=== PATIENT | female | born 1930 | race Caucasian/White ===

== ENCOUNTER 2016-09-16 14:09 | Emergency (ER) | payer MEDICAID, MEDICARE ==
[~2016-09-16] VITALS: Ht 157.5 cm; Wt 44.0 kg
[2016-09-16 14:17] VITALS: BP 194/75; PULSE 66; RESP 15; TEMP 97.9; O2SAT 98
[2016-09-16] MEDS ORDERED: SODIUM CHLORIDE 0.9% FLUSH 10 ML FLUSH IVF PRN (14:45)
[2016-09-16 14:55] VITALS: BP 218/76
[2016-09-16 15:01] VITALS: BP 206/82; PULSE 53; O2SAT 97
--- NOTE | 2016-09-16 15:14 | PD ---
HPI Chief Complaint: General Weakness Time Seen by Provider: 14:27 Travel History International Travel<30 days: No Contact w/Intl Traveler<30days: No Traveled to known affect area: No History of Present Illness HPI The patient is 86 years old. She reports a generalized sensation of weakness. The daughter provides the family history notes that one week ago the patient was found by her son. At that time she was very thin having lost at least 20 pounds or so. She was eating cereal only for several weeks. Since then her appetite is greatly improved and she is actually gained almost 10 pounds in a week. A visiting home health aide suggested in the ER evaluation for urinary tract infection or other abnormality. The patient has had no falls or fever. She has not had nausea or vomiting. No chest pain or shortness of breath. The patient denies any past medical history. PFSH Past Medical History Medical History: Denies Significant Hx Heart Rhythm Problems: No Cardiac Catheterization: No Cardiovascular Problems: No High Cholesterol: No Congestive Heart Failure: No Diabetes: No Diminished Hearing: Yes Immunizations Current: No Tetanus Vaccination: Unknown ?: Not Past Surgical History Surgical History: No Previous Surgery Coronary Artery Bypass Graft: No Family History Family Myocardial Infarction: Yes (father) Social History Alcohol Use: No (hx of) Tobacco Use: No (multiple year history but quit over 20 years ago when she picked up drinkin) Substance Use: No Allergies-Medications (Allergen,Severity, Reaction): Coded Allergies: No Known Allergies (Unverified , 03/19/16) Reported Meds & Prescriptions Reported Meds & Active Scripts Active No Active Prescriptions or Reported Medications Review of Systems Except as stated in HPI: all other systems reviewed are Neg General / Constitutional: Positive: Weight Gain, Weight Loss, No: Fever, Chills Physical Exam Narrative GENERAL: 86-year-old female well-nourished well-developed pleasant. SKIN: Focused skin assessment warm/dry. HEAD: Atraumatic. Normocephalic. EYES: Pupils equal and round. No scleral icterus. No injection or drainage. ENT: No nasal bleeding or discharge. Mucous membranes pink and moist. NECK: Trachea midline. No JVD. CARDIOVASCULAR: Regular rate and rhythm. No murmur appreciated. RESPIRATORY: No accessory muscle use. Clear to auscultation. Breath sounds equal bilaterally. GASTROINTESTINAL: Abdomen soft, non-tender, nondistended. Hepatic and splenic margins not palpable. MUSCULOSKELETAL: No obvious deformities. No clubbing. No cyanosis. No edema. NEUROLOGICAL: Awake and alert. No obvious cranial nerve deficits. Motor grossly within normal limits. Normal speech. PSYCHIATRIC: Appropriate mood and affect; insight and judgment normal. Data Data Last Documented VS Vital Signs Date Time Temp Pulse Resp B/P Pulse Ox O2 Delivery O2 Flow Rate FiO2 09/16/16 15:22 Room Air 09/16/16 15:01 53 206/82 97 09/16/16 14:17 97.9 15 Vital signs reviewed Orders Electrocardiogram (09/16/16 14:34) Complete Blood Count With Diff (09/16/16 14:34) Comprehensive Metabolic Panel (09/16/16 14:34) Troponin I (09/16/16 14:34) Thyroid Stimulating Hormone (09/16/16 14:34) Urinalysis - C+S If Indicated (09/16/16 14:34) Ecg Monitoring (09/16/16 14:34) Iv Access Insert/Monitor (09/16/16 14:34) Oximetry (09/16/16 14:34) Sodium Chloride 0.9% Flush (Ns Flush) (09/16/16 14:45) Labs Laboratory Tests Test 09/16/16 09/16/16 14:40 14:51 White Blood Count 8.9 TH/MM3 Red Blood Count 4.22 MIL/MM3 Hemoglobin 12.7 GM/DL Hematocrit 37.7 % Mean Corpuscular Volume 89.2 FL Mean Corpuscular Hemoglobin 30.0 PG Mean Corpuscular Hemoglobin 33.7 % Concent Red Cell Distribution Width 13.5 % Platelet Count 226 TH/MM3 Mean Platelet Volume 9.2 FL Neutrophils (%) (Auto) 63.9 % Lymphocytes (%) (Auto) 29.4 % Monocytes (%) (Auto) 4.8 % Eosinophils (%) (Auto) 1.3 % Basophils (%) (Auto) 0.6 % Neutrophils # (Auto) 5.7 TH/MM3 Lymphocytes # (Auto) 2.6 TH/MM3 Monocytes # (Auto) 0.4 TH/MM3 Eosinophils # (Auto) 0.1 TH/MM3 Basophils # (Auto) 0.1 TH/MM3 CBC Comment DIFF FINAL Differential Comment Sodium Level 140 MEQ/L Potassium Level 3.4 MEQ/L Chloride Level 103 MEQ/L Carbon Dioxide Level 24.6 MEQ/L Anion Gap 12 MEQ/L Blood Urea Nitrogen 17 MG/DL Creatinine 1.15 MG/DL Estimat Glomerular Filtration 45 ML/MIN Rate Random Glucose 119 MG/DL Calcium Level 8.9 MG/DL Total Bilirubin 0.4 MG/DL Aspartate Amino Transf 33 U/L (AST/SGOT) Alanine Aminotransferase 31 U/L (ALT/SGPT) Alkaline Phosphatase 99 U/L Troponin I LESS THAN 0.02 NG/ML Total Protein 7.2 GM/DL Albumin 3.3 GM/DL Thyroid Stimulating Hormone 4.190 uIU/ML 3rd Gen Urine Color LIGHT-YELLOW Urine Turbidity CLEAR Urine pH 5.5 Urine Specific [place] 1.004 Urine Protein NEG mg/dL Urine Glucose (UA) NEG mg/dL Urine Ketones NEG mg/dL Urine Occult Blood NEG Urine Nitrite NEG Urine Bilirubin NEG Urine Urobilinogen LESS THAN 2.0 MG/DL Urine Leukocyte Esterase TRACE Urine RBC 2 /hpf Urine WBC 1 /hpf Urine Squamous Epithelial 1 /hpf Cells Microscopic Urinalysis Comment CULT NOT INDICATED MDM Medical Decision Making Medical Screen Exam Complete: Yes Emergency Medical Condition: Yes Medical Record Reviewed: Yes Differential Diagnosis Urinary tract infection, anemia, electrolyte imbalance, renal failure, depression, failure to thrive Narrative Course CBC & BMP Diagram 09/16/16 14:40 LFTs normalTSH 4.19 Tn < 0.02 EKG: Sinus bradycardia, rate 55, normal axis The patient is resting comfortably and feels better, is alert and in no distress. The patients results and examination findings were discussed. The repeat examination is unremarkable and benign. The history, exam, diagnostic testing, and current condition do not suggest any significant pathology to warrant further testing, continued ED treatment, admission, or surgical evaluation at this point. The vital signs have been stable. The patient does not have uncontrollable pain, intractable vomiting, or other significant symptoms. The patient's condition is stable and appropriate for discharge. The patient will pursue further outpatient evaluation with a primary care physician or other designated or consulting physician as indicated in the discharge instructions. The patient expressed understanding and was agreeable with this plan. Diagnosis Primary Impression: Generalized weakness Additional Impressions: TSH elevation Hypokalemia Referrals: Carlin Watts MD PhD 2 days Melisa Braswell MD 2 days Additional Instructions: You have a choice when it comes to health care, and we are glad that you chose [facility]. Hopefully, we have met your expectations on today's visit. You are welcome to return to [facility] at any time, as we are committed to meeting the health care needs of our community. Med/Other Pt SpecificInfo: No Change to Meds Scripts No Active Prescriptions or Reported Meds Disposition: 01 DISCHARGE HOME Condition: Jamal Leslie MD Sep 16, 2016 15:13
[2016-09-16 15:21] LABS: AUTOMATED NEUTROPHIL # 5.7 TH/MM3 (1.8-7.7); BASOPHIL # 0.1 TH/MM3 (0-0.2); BASOPHIL % 0.6 % (0.0-2.0); EOSINOPHIL # 0.1 TH/MM3 (0-0.4); EOSINOPHIL % 1.3 % (0.0-4.0); HEMATOCRIT 37.7 % (35.0-46.0); HEMO FLAGS DIFF FINAL; LYMPH % 29.4 % (9.0-44.0); LYMPHOCYTE # 2.6 TH/MM3 (1.0-4.8); MEAN CELL VOLUME 89.2 FL (80.0-100.0); MEAN CORPUSCULAR HGB CONC 33.7 % (32.0-36.0); MONO % 4.8 % (0.0-8.0); NEUT % 63.9 % (16.0-70.0); PLATELET COUNT 226 TH/MM3 (150-450); RED BLOOD COUNT 4.22 MIL/MM3 (4.00-5.30); RED CELL DISTRIBUTION WIDTH 13.5 % (11.6-17.2); WHITE BLOOD COUNT 8.9 TH/MM3 (4.0-11.0)
[2016-09-16 15:39] LABS: BLOOD, URINE NEG (NEG); GLUCOSE,URINE NEG (NEG); KETONE, URINE NEG (NEG); NITRITE,URINE NEG (NEG); PH, URINE 5.5 (5.0-8.5); SQUAMOUS EPITHELIAL CELL URINE 1 /hpf (0-5); URINE COLOR LIGHT-YELLOW (YELLW/STRAW)
[2016-09-16 15:40] LABS: COMMENT (UR) CULT NOT INDICATED; CULTURE IF INDICATED CULT NOT INDICATED
[2016-09-16 15:56] LABS: ALT (GPT) 31 U/L (10-53); ANION GAP 12 MEQ/L (5-15); AST (GOT) 33 U/L (15-37); BICARBONATE 24.6 MEQ/L (21.0-32.0); BLOOD UREA NITROGEN 17 MG/DL (7-18); CHLORIDE 103 MEQ/L (98-107); GLOMERULAR FILTRATION RATE 45 ML/MIN (>89); SODIUM (NA) 140 MEQ/L (136-145)
[2016-09-16 16:00] LABS: ALKALINE PHOSPHATASE 99 U/L (45-117); TOTAL BILIRUBIN ADULT 0.4 MG/DL (0.2-1.0)
[2016-09-16 16:02] LABS: POTASSIUM 3.4 MEQ/L (3.5-5.1)
[2016-09-16] MEDS ORDERED: POTASSIUM CHLORIDE 20 MEQ CONTROLLED RELEASE TAB PO ONE (16:15)
--- NOTE | 2016-09-17 22:45 | EKG ---
Date Performed: 09/16/2016 Time Performed: 15:50:55 PTAGE: 86 years EKG: SINUS BRADYCARDIA POSSIBLE LEFT ATRIAL ENLARGEMENT NONSPECIFIC ST & T-WAVE ABNORMALITY BORD SAM ECG Compared to the PREVIOUS TRACING rate slower DOCTOR: Susi Mehta Interpretating Date/Time 09/17/2016 22:44:29
== END 2016-09-16 16:50 | disposition home or self-care (01) ==
LOC: NEPC 14:09
DX: R53.1 Weakness (principal); E87.6 Hypokalemia; R94.6 Abnormal results of thyroid function studies; R00.1 Bradycardia, unspecified
CPT/HCPCS: 80053; 81001; 84443; 84484; 85025; 93005